=== PATIENT | female | born 1990 | race Caucasian/White ===

== ENCOUNTER 2024-02-05 15:45 | Emergency (ER) | payer OTHER ==
[2024-02-05 16:22] VITALS: BP 125/86; PULSE 58; RESP 17; TEMP 97.9; BMI 27.0
[2024-02-05] MEDS ORDERED: BUPRENORPHINE/NALOXONE 2 MG/0.5 MG FILM PACKET ONE ×2 (16:35→18:13)
[2024-02-05] MEDS: BUPRENORPHINE/NALOXONE 4 MG/1 MG FILM PACKET SL ONE (16:40)
[2024-02-05] MEDS: BUPRENORPHINE/NALOXONE 8 MG/2 MG FILM PACKET SL ONE (18:15)
== END 2024-02-05 19:35 | disposition home or self-care (01) ==
LOC: JER 15:45
DX: O99.323 Drug use complicating pregnancy, third trimester (principal); F11.13 Opioid abuse with withdrawal; O99.891 Other specified diseases and conditions complicating pregnancy; R11.0 Nausea; R61 Generalized hyperhidrosis; Z3A.35 35 weeks gestation of pregnancy
CPT/HCPCS: 99283-25